=== PATIENT | male | born 1965 | race Caucasian/White ===

== ENCOUNTER 2023-11-01 15:52 | Emergency (ER) | payer BC, SELFPAY ==
[2023-11-01 15:58] VITALS: BP 157/110
[2023-11-01 16:15] LABS: % Basophils 0.7 % (0-2); % Immature Granulocytes 0.3 % (0-0.5); % Lymphocytes 17.9 % (20.5-51.1); % Monocytes 7.9 % (1.7-9.3); % Neutrophils 72.2 % (42.2-75.2); Absolute Basophils 0.1 10^3/uL (0-0.2); Absolute Eosinophils 0.1 10^3/uL (0-0.7); Absolute Lymphocytes 1.6 10^3/uL (1.2-3.4); Absolute Monocytes 0.7 10^3/uL (0.1-0.6); Absolute Neutrophils 6.5 10^3/uL (1.4-6.5); Hematocrit 44.4 % (39.0-52.0); Hemoglobin 15.7 g/dL (13.0-18.0); Mean Corp Hgb Conc. 35.4 g/dL (33.0-37.0); Mean Corpuscular Hgb 30.1 pg (27.0-31.0); Mean Corpuscular Volume 85.1 fL (80.0-94.0); Nucleated Red Blood Cells % 0 % (-); Platelet Count 265 10^3/uL (130-400); Red Blood Cell Count 5.22 10^6/uL (4.70-6.10); Red Cell Dist. Width 13.2 % (11.5-14.5)
[2023-11-01 16:24] LABS: ALT (SGPT) 63 U/L (0-50); AST (SGOT) 41 U/L (17-59); Albumin 4.8 g/dl (3.5-5.0); Alkaline Phosphatase 98 U/L (38-126); Blood Urea Nitrogen 23 mg/dl (9-20); Calcium 9.7 mg/dl (8.4-10.2); Carbon Dioxide 23 mmol/L (22-30); Chloride 108 mmol/L (98-107); Glucose 102 mg/dl (70-99); Potassium 4.4 mmol/L (3.5-5.1); Sodium 142 mmol/L (135-145); Total Bilirubin 0.6 mg/dl (0.2-1.3); Total Protein 7.9 g/dl (6.3-8.2); eGFR > 60.00
[2023-11-01 16:39] LABS: Troponin I < 0.012 ng/ml
[2023-11-01 17:55] VITALS: BP 145/94
[2023-11-01 18:00] VITALS: BP 137/92
[2023-11-01 18:18] VITALS: BMI 36.3
[2023-11-01 19:20] VITALS: BP 136/90
--- NOTE | 2023-11-01 19:22 | ED.GENMED ---
History of Present Illness
General
Chief Complaint: Chest Pain
Time Seen by Provider: 11/01/23 18:15
History of Present Illness
History of Present Illness:
58-year-old male with history of hypertension hyperlipidemia presenting to the emergency department for chest pain. Patient reports 3 days ago and today he had a episode of chest pain. Reports a tightness/squeezing pain across his chest, lasted
about 10 to 15 seconds while at rest. Pain subsequently resolved. Denies known cardiac history. Denies any difficulty breathing. Denies fever. Denies weakness or numbness of extremities. Denies any present chest pain. Denies additional acute
medical
Past History
Past History
ED Past Medical History: HTN, Hypercholesterolemia and Other (Kidney stones, Pulmonary stenosis)
ED Past Surgical History: Bowel resection (Sigmoid colon for Diverticulitis) and Other (Hernia repair X 2)
Social History
Tobacco: Non-smoker
Alcohol: Occasional
Personal:
Living: with family
Phy Exam
Physical Exam
Physical Exam:
GENERAL: Alert , in no apparent distress
EYE: pupils equal and reactive
NECK: Supple, no significant adenopathy.
ENT: o/p clr, mmm.
CARDIAC: Regular rate and rhythm .
LUNGS: Clear breath sounds bilaterally, no acute respiratory distress, no wheezes/rales/rhonchi
ABDOMEN: Soft, without focal tenderness, no r/g
NEUROLOGICAL: Alert and oriented, no focal neuro deficits
SKIN: Warm and dry, skin intact.
MUSCULOSKELETAL: No edema, well perfused.
PSYCH: Normal and appropriate interaction.
Scores
Heart Score for Chest Pain Patients
STEMI patient?: No
History: Slightly or Non-Suspicious
ECG: Normal
Age: >45 - <65 years
Risk Factors: >/= 3 Risk Factors or History of CAD
Troponin: </= Normal Limit
Heart Score for Chest Pain Patients: 3
Heart Score Risk: 2.5% MACE over next 6 weeks
Course
Orders/Labs/Results
Orders:
Orders
11/01/23 15:53
Electrocardiogram (*1) Urgent
Reason for Study: Chest Pain
EKG- Treatment ONCE
11/01/23 16:06
Complete Blood Count/With Diff Urgent
Comprehensive Metabolic Panel Urgent
Troponin I Urgent
11/01/23 16:33
CR Chest - 2 Views Urgent
Comment:
Reason For Exam: chest pain
11/01/23 18:03
EKG [Electrocardiogram (*1)] Urgent
Reason for Study: Tachycardia
EKG- Treatment ONCE
11/01/23 19:24
Troponin I Urgent
Abnormal Lab Results
11/01/23
16:06
Absolute Monos (auto) 0.7 H 10^3/uL
(0.1-0.6)
Lymphocytes % 17.9 L %
(20.5-51.1)
Chloride 108 H mmol/L
(98-107)
BUN 23 H mg/dl
(9-20)
Glucose 102 H mg/dl
(70-99)
ALT 63 H U/L
(0-50)
11/01/23 16:06
11/01/23 16:06
Vital Signs
Initial and Last Documented VS:
Initial Vital Signs
Temp Pulse Resp BP Pulse Ox
98.7 F 96 18 157/110 95
11/01/23 15:58 11/01/23 15:58 11/01/23 15:58 11/01/23 15:58 11/01/23 15:58
Last Documented Vital Signs
Temp Pulse Resp BP Pulse Ox
98.7 F 78 17 137/92 96
11/01/23 15:58 11/01/23 18:15 11/01/23 18:15 11/01/23 18:00 07/01/24 18:21
MDM/Problems Addressed
MDM/Problems Addressed:
58-year-old male with history of hypertension hyperlipidemia presenting to the emergency department for episode of chest pain prior to arrival. Vital signs on arrival significant for high blood pressure.
On exam, patient is resting comfortably, no acute distress, presently asymptomatic. EKG obtained on arrival, without acute ischemic abnormality. Lower suspicion for ACS, however patient does have cardiac risk factors, so plan for laboratory
analysis including troponin and chest x-ray.
18:30 - Initial troponin within limits. Plan for second troponin
20:10 - Second troponin within normal limits. Patient low risk by heart score. Feel stable for discharge, however close of her follow-up with cardiology for potential stress test. Patient agreeable plan. Precautions medication patient verbalized
understanding
*Critical Care Note
Total Time (30-74mins, 75-104mins- exclusive of procedures): Not Applicable
ED Attending Note
-
Portions of this chart may have been created with voice recognition software.� Occasional wrong word or��sound alike� substitutions may have occurred due to the inherent limitations of voice recognition software.
Discharge Plan
Departure
Prescriptions:
No Action
amlodipine 5 MG tablet
5 mg PO DAILY
omeprazole magnesium [Prilosec OTC] 20 MG tablet,delayed release (DR/EC)
20 mg PO DAILY
psyllium husk (aspartame) [Metamucil Fiber Singles] 1 PACKET powder in packet
1 packet PO DAILY
multivitamin with folic acid [Tab-A-Lexy] 1 TABLET tablet
1 tab PO DAILY
tramadol 50 MG tablet
50 mg PO Q8HPRN PRN (Reason: pain) Qty: 25 0RF
tamsulosin 0.4 MG capsule
0.4 mg PO DAILY Qty: 30 0RF
phenazopyridine 100 MG tablet
100 mg PO BID Qty: 20 0RF
Referrals:
Efren Guerrero MD [Family Provider] -
Interventions
Interventions:
*Risk Screen - Suicide Last Done: 11/01/23 15:58
*General Assessment Last Done: 11/01/23 15:58
*Neglect/Abuse Screening Last Done: 11/01/23 15:58
ED- Fall Risk Assessment Last Done: 11/01/23 18:21
*ED COVID-19 Vaccine History Last Done: 11/01/23 18:19
ED- Cardiac Assessment Last Done: 11/01/23 18:19
Discharge Date and Time
Print Language: KAZAKH
[2023-11-01 20:00] VITALS: BP 142/92
[2023-11-01 20:05] LABS: Troponin I < 0.012 ng/ml
== END 2023-11-01 20:40 | disposition home or self-care (01) ==
LOC: EMR 15:52
PROVIDERS: EMERGENCY PHYSICIAN Student in an Organized Health Care Education/Training Program; FAMILY PHYSICIAN Internal Medicine
DX: R07.89 Other chest pain (principal); I10 Essential (primary) hypertension; E78.00 Pure hypercholesterolemia, unspecified; K57.92 Diverticulitis of intestine, part unspecified, without perforation or abscess without bleeding; Z87.442 Personal history of urinary calculi; Z98.0 Intestinal bypass and anastomosis status; Z88.1 Allergy status to other antibiotic agents
CPT/HCPCS: 99284; 71046; 80053; 84484; 85025; 93005

== ENCOUNTER → 2023-11-03 06:41 | Outpatient (REF) | payer BC, SELFPAY ==
[2023-11-03 07:42] LABS: HDL Cholesterol 43 mg/dl; Total Cholesterol 306 mg/dl (50-199)
[2023-11-03 07:46] LABS: Triglyceride 487 mg/dl (10-149)
[2023-11-03 08:13] LABS: TSH 4.22 uIU/ml (0.47-4.68)
[2023-11-03 08:18] LABS: LDL Cholesterol, Direct 68 mg/dl
[2023-11-03 11:09] LABS: Glycohemoglobin (HgbA1c) 5.6 % (4.0-5.6)
== END ==
LOC: REG 06:41
PROVIDERS: ATTENDING PHYSICIAN Internal Medicine; FAMILY PHYSICIAN Internal Medicine
DX: R07.9 Chest pain, unspecified (principal); I10 Essential (primary) hypertension
CPT/HCPCS: 36415; 80061; 83036; 83721; 84443

== ENCOUNTER → 2023-11-08 06:50 | Outpatient (REF) | payer BC, SELFPAY | LOC: RCS 06:50 | PROVIDERS: ATTENDING PHYSICIAN Internal Medicine; FAMILY PHYSICIAN Internal Medicine | DX: R07.9 Chest pain, unspecified (principal) | CPT/HCPCS: 93306 ==

== ENCOUNTER → 2023-11-09 07:33 | Outpatient (REF) | payer BC, SELFPAY | LOC: DHCBC/DCA 07:33 | PROVIDERS: ATTENDING PHYSICIAN Internal Medicine; FAMILY PHYSICIAN Internal Medicine | DX: R07.9 Chest pain, unspecified (principal) | CPT/HCPCS: 78452; 93017; A9500 ==

== ENCOUNTER → 2023-11-29 06:53 | Outpatient (REF) | payer BC, SELFPAY | LOC: PAVMRI 06:53 | PROVIDERS: ATTENDING PHYSICIAN Psychiatry & Neurology Neurology; FAMILY PHYSICIAN Internal Medicine | DX: M54.12 Radiculopathy, cervical region (principal); M47.812 Spondylosis without myelopathy or radiculopathy, cervical region | CPT/HCPCS: 72141 ==

== ENCOUNTER → 2024-02-11 06:42 | Outpatient (REF) | payer BC, SELFPAY ==
[2024-02-11 10:31] LABS: HDL Cholesterol 59 mg/dl; LDL Cholesterol, Calculated 72 mg/dl; Total Cholesterol 155 mg/dl (50-199); Triglyceride 120 mg/dl (10-149); Very Low Density Lipoprotein 24 mg/dl (0-30)
== END ==
LOC: REG 06:42
PROVIDERS: ATTENDING PHYSICIAN Nurse Practitioner; FAMILY PHYSICIAN Internal Medicine
DX: E78.1 Pure hyperglyceridemia (principal)
CPT/HCPCS: 36415; 80061

== ENCOUNTER → 2025-04-05 06:48 | Outpatient (REF) | payer BC, SELFPAY ==
[2025-04-05 08:48] LABS: ALT (SGPT) 47 U/L (0-50); AST (SGOT) 39 U/L (17-59); Albumin 4.9 g/dl (3.5-5.0); Alkaline Phosphatase 76 U/L (38-126); Blood Urea Nitrogen 18 mg/dl (9-20); Calcium 9.6 mg/dl (8.4-10.2); Carbon Dioxide 28 mmol/L (22-30); Chloride 104 mmol/L (98-107); Glucose 105 mg/dl (70-99); HDL Cholesterol 52 mg/dl; LDL Cholesterol, Calculated 122 mg/dl; Potassium 4.9 mmol/L (3.5-5.1); Sodium 139 mmol/L (135-145); Total Protein 8.2 g/dl (6.3-8.2); Very Low Density Lipoprotein 42 mg/dl (0-30); eGFR > 60.00
== END ==
LOC: REG 06:48
PROVIDERS: ATTENDING PHYSICIAN Internal Medicine Cardiovascular Disease; FAMILY PHYSICIAN Internal Medicine
DX: E78.1 Pure hyperglyceridemia (principal); I10 Essential (primary) hypertension; I37.0 Nonrheumatic pulmonary valve stenosis; R07.9 Chest pain, unspecified
CPT/HCPCS: 36415; 80061; 80069; 80076